=== PATIENT | male | born 1960 | race Two or more races ===

== ENCOUNTER 2016-09-20 07:41 | Inpatient (IN) | payer OTHER ==
[~2016-09-20] VITALS: Ht 165.1 cm; Wt 74.4 kg
[2016-09-20 08:14] LABS: PLATELET COUNT 311 x10^3mcL (130-400)
[2016-09-20 08:24] LABS: CALCIUM 9.1 mg/dL (8.5-10.1); CARBON DIOXIDE 25.9 mmol/L (21-32); CHLORIDE SERUM 101 mmol/L (98-107); GFR1 > 60 mL/min; GLUCOSE SERUM 151 mg/dL (74-106); POTASSIUM SERUM 4.3 mmol/L (3.5-5.1); SODIUM SERUM 136 mmol/L (136-145)
[2016-09-20 08:30] LABS: ALBUMIN 3.7 g/dL (3.4-5.0); ALKALINE PHOSPHATASE 77 U/L (46-116); ALT/SGPT 27 U/L (16-63); AST/SGOT 15 U/L (15-37); BILIRUBIN TOTAL 0.46 mg/dL (0.20-1.00); LIPASE 154 IU/L (73-393); TOTAL PROTEIN, SERUM 7.7 g/dL (6.4-8.2)
[2016-09-20 08:55] LABS: BAND NEUTROPHIL 3 % (0-10); BASOPHIL 0 % (0-2); MONOCYTE 2 % (0-7); SEGMENTED NEUTROPHILS 87 % (37-75)
[2016-09-20 08:56] LABS: PLATELET MORPHOLOGY PLATELETS NORMAL; rbc morphology (normal/abnorm) ABNORMAL (NORMAL)
[2016-09-20 12:51] LABS: CHOLESTEROL/HDL RATIO 2.5
[2016-09-20 12:54] LABS: FREE T4 1.32 ng/dL (0.76-1.46); T4(THYROXINE) 9.2 ug/dL (4.7-13.3)
[2016-09-20 13:11] LABS: T3 TOTAL 1.1 ng/mL
[2016-09-20 13:15] VITALS: BP 152/94
[2016-09-20 13:20] VITALS: BP 152/94
[2016-09-20 16:16] LABS: microscopic required? YES; urine erythrocyte 1+ (NEGATIVE)
[2016-09-20 16:51] LABS: AMPHETAMINE QUAL UR NONE DETECTED (NEG <=1000)
[2016-09-20 17:30] VITALS: BP 121/82
[2016-09-20 21:07] VITALS: BP 103/63
[2016-09-21] VITALS (8 sets, daily range): BP systolic 65–128; BP diastolic 37–95
[2016-09-21 06:24] LABS: BASOPHIL % 0.3 % (0-2); PLATELET COUNT 274 x10^3mcL (130-400); RED CELL DISTRIBUTION WIDTH 13.8 % (11.5-14.5)
[2016-09-21 06:41] LABS: CALCIUM 7.9 mg/dL (8.5-10.1); CARBON DIOXIDE 25.3 mmol/L (21-32); CHLORIDE SERUM 105 mmol/L (98-107); CREATININE SERUM 0.9 mg/dL (0.7-1.3); GFR1 > 60 mL/min; GLUCOSE SERUM 127 mg/dL (74-106); MAGNESIUM 2.1 mg/dL (1.8-2.4); PHOSPHOROUS 3.4 mg/dL (2.5-4.9); POTASSIUM SERUM 3.3 mmol/L (3.5-5.1); SODIUM SERUM 137 mmol/L (136-145)
[2016-09-22 00:21] VITALS: BP 80/52
[2016-09-22 03:34] VITALS: BP 94/58
[2016-09-22 05:38] LABS: CALCIUM 7.3 mg/dL (8.5-10.1); CARBON DIOXIDE 25.8 mmol/L (21-32); CHLORIDE SERUM 109 mmol/L (98-107); CREATININE SERUM 0.9 mg/dL (0.7-1.3); GFR1 > 60 mL/min; GLUCOSE SERUM 112 mg/dL (74-106); MAGNESIUM 1.7 mg/dL (1.8-2.4); PHOSPHOROUS 2.9 mg/dL (2.5-4.9); POTASSIUM SERUM 3.6 mmol/L (3.5-5.1); SODIUM SERUM 142 mmol/L (136-145)
[2016-09-22 05:41] LABS: BASOPHIL % 0.3 % (0-2); PLATELET COUNT 210 x10^3mcL (130-400); RED CELL DISTRIBUTION WIDTH 13.5 % (11.5-14.5)
[2016-09-22 07:45] VITALS: BP 82/54
[2016-09-22 12:30] VITALS: BP 102/71
[2016-09-22 16:31] LABS: BASOPHIL % 0.3 % (0-2); PLATELET COUNT 218 x10^3mcL (130-400); RED CELL DISTRIBUTION WIDTH 13.8 % (11.5-14.5)
[2016-09-22 16:45] VITALS: BP 115/74
[2016-09-22 21:11] VITALS: BP 108/74
[2016-09-23 00:22] VITALS: BP 80/49
[2016-09-23 03:43] VITALS: BP 115/75
[2016-09-23 05:24] LABS: BASOPHIL % 0.3 % (0-2); PLATELET COUNT 230 x10^3mcL (130-400); RED CELL DISTRIBUTION WIDTH 14.3 % (11.5-14.5)
[2016-09-23 05:48] LABS: CALCIUM 7.5 mg/dL (8.5-10.1); CARBON DIOXIDE 25.6 mmol/L (21-32); CHLORIDE SERUM 107 mmol/L (98-107); CREATININE SERUM 0.7 mg/dL (0.7-1.3); GFR1 > 60 mL/min; GLUCOSE SERUM 120 mg/dL (74-106); MAGNESIUM 2.3 mg/dL (1.8-2.4); PHOSPHOROUS 2.9 mg/dL (2.5-4.9); POTASSIUM SERUM 3.6 mmol/L (3.5-5.1); SODIUM SERUM 140 mmol/L (136-145)
[2016-09-23 07:55] VITALS: Ht 165.1 cm; Wt 74.4 kg
[2016-09-23 08:15] VITALS: BP 105/68
[2016-09-23 11:45] VITALS: BP 105/68
[2016-09-23 16:30] VITALS: BP 116/68
[2016-09-23 19:40] VITALS: BP 114/70
[2016-09-24 00:23] VITALS: BP 112/74
[2016-09-24 05:54] LABS: BASOPHIL % 0.6 % (0-2); PLATELET COUNT 252 x10^3mcL (130-400); RED CELL DISTRIBUTION WIDTH 13.6 % (11.5-14.5)
[2016-09-24 06:37] VITALS: BP 104/66
[2016-09-24 06:46] LABS: CARBON DIOXIDE 27.5 mmol/L (21-32); CHLORIDE SERUM 107 mmol/L (98-107); CREATININE SERUM 0.8 mg/dL (0.7-1.3); GFR1 > 60 mL/min; GLUCOSE SERUM 126 mg/dL (74-106); MAGNESIUM 1.9 mg/dL (1.8-2.4); PHOSPHOROUS 4.6 mg/dL (2.5-4.9); POTASSIUM SERUM 3.6 mmol/L (3.5-5.1); SODIUM SERUM 142 mmol/L (136-145)
[2016-09-24 10:18] VITALS: BP 120/81
[2016-09-24] MEDS ORDERED: KEFLEX500 M1 PO ×2 (12:50→14:52)
[2016-09-24] MEDS ORDERED: FLA500 PO (12:53)
[2016-09-24] MEDS ORDERED: LAC PO (12:54)
[2016-09-24] MEDS ORDERED: COL100 PO (12:56)
[2016-09-24] MEDS ORDERED: APAP/HYDROCODON1 T13 PO (12:56)
[2016-09-24] MEDS ORDERED: ZOF4 PO (13:01)
[2016-09-24 14:53] VITALS: BP 120/81
== END 2016-09-24 15:12 | disposition home or self-care (01) | DRG 263 ==
LOC: ED 07:41 → DU 11:50 → IC 11:50 → DU 12:54 → IC 09-22 00:01 → DU 09-24 00:17
PROVIDERS: Emergency Medicine; Family Medicine; Surgery; ADMIT Family Medicine
PROC: 0FT44ZZ Resection of Gallbladder, Percutaneous Endoscopic Approach (ICD-10-PCS; principal; 2016-09-21 13:00)
DX: K80.00 Calculus of gallbladder with acute cholecystitis without obstruction (principal); N17.0 Acute kidney failure with tubular necrosis; E43 Unspecified severe protein-calorie malnutrition; K21.9 Gastro-esophageal reflux disease without esophagitis; R73.03 Prediabetes; I10 Essential (primary) hypertension; E87.6 Hypokalemia; E83.42 Hypomagnesemia; E78.5 Hyperlipidemia, unspecified; D64.9 Anemia, unspecified; Z68.27 Body mass index [BMI] 27.0-27.9, adult; Z72.0 Tobacco use; Z59.0 Homelessness
CPT/HCPCS: 78226; 80307; 82962; 83880; 84439; 90658; 90732; 94150; A9537; C9113; G0480; J0330; J0696; J1885; J2175; J2250; J2270; J2405; J2704; J3010; J3475; J3490; J7030; J7120; P9045; Q0092; Q9967